=== PATIENT | male | born 1975 | race Caucasian/White ===

== ENCOUNTER → 2023-07-19 14:34 | Outpatient (BNVA) | payer SELFPAY | PROVIDERS: Visit Provider Podiatrist Foot & Ankle Surgery | DX: M79.671 Pain in right foot (principal); M79.672 Pain in left foot; M72.2 Plantar fascial fibromatosis | CPT/HCPCS: 73630 ==

== ENCOUNTER 2023-08-10 11:03 | Outpatient (CLI) | payer BC, SELFPAY | END 2023-08-10 11:04 | disposition home or self-care (01) | LOC: SPT 11:03 | PROVIDERS: Visit Provider Podiatrist Foot & Ankle Surgery | DX: Z46.89 Encounter for fitting and adjustment of other specified devices (principal); M72.2 Plantar fascial fibromatosis | CPT/HCPCS: 97760; L4397 ==

== ENCOUNTER 2023-09-15 14:12 | Outpatient (CLI) | payer BC, SELFPAY ==
--- NOTE | 2023-09-15 14:30 | MR_ITS ---
WS: [id number] MRI LEFT FOOT WITHOUT CONTRAST. COMPARISON: Radiographs 07/19/2023 Multiplanar, multisequence imaging is performed without contrast. There is a small amount of marrow edema along the plantar surface of the calcaneus subjacent to the p lantar fascia attachment. Edema along the plantar surface of the calcaneus and extends just slightly greater to the lateral aspect. No erosions are identified in the calcaneus. There is mild thickening of the plantar fascia measuring up to 7 mm. Small amount of edema adjacent to the fascia. There is a small calcaneal spur measuring 7 mm. Achilles tendon is normal. No joint effusion. Normal peroneal tendons. Flexor hallucis longus, manager general ior tibial tendon and the flexor digitorum longus are intact. No edema within the adjacent muscles. N o widening of the Lisfranc joint. IMPRESSION: 1. Marrow edema plantar surface of the calcaneus subjacent to the plantar fascia attachment. Mild fus iform thickening of the plantar fascia. Findings are suspicious for plantar fasciitis. 2. No fractures within the calcaneus. 3. Differential includes spondyloarthropathy. Thought less likely as no erosions are identified.
== END 2023-09-15 14:13 | disposition home or self-care (01) ==
LOC: RAD 14:13
PROVIDERS: Visit Provider Podiatrist Foot & Ankle Surgery
DX: M79.672 Pain in left foot (principal)
CPT/HCPCS: 73718